=== PATIENT | male | born 1945 | race Two or more races ===

== ENCOUNTER 2018-01-06 07:57 | Outpatient (CLI) | payer OTHER ==
[~2018-01-06 07:57] MED LIST: GLUMETZA1000 MG; LOSARTAN POTASS50 MG; SYNTHROID50 MCG
== END 2018-01-06 08:03 | disposition home or self-care (01) ==
LOC: LAB 07:57
DX: E03.8 Other specified hypothyroidism (principal); C73 Malignant neoplasm of thyroid gland

== ENCOUNTER 2018-02-16 07:55 | Outpatient (CLI) | payer OTHER | END 2018-02-16 08:03 | disposition home or self-care (01) | LOC: LAB 07:55 | DX: Z76.0 Encounter for issue of repeat prescription (principal); E11.8 Type 2 diabetes mellitus with unspecified complications; E03.9 Hypothyroidism, unspecified; C73 Malignant neoplasm of thyroid gland ==

== ENCOUNTER 2018-03-10 12:08 | Outpatient (CLI) | payer OTHER | END 2018-03-10 12:15 | disposition home or self-care (01) | LOC: LAB 12:08 | DX: M25.562 Pain in left knee (principal); E11.65 Type 2 diabetes mellitus with hyperglycemia; R31.0 Gross hematuria; K92.1 Melena ==

== ENCOUNTER 2018-07-07 06:36 | Outpatient (CLI) | payer OTHER | END 2018-07-07 06:59 | disposition home or self-care (01) | LOC: LAB 06:36 | DX: I10 Essential (primary) hypertension (principal); E03.8 Other specified hypothyroidism; E11.65 Type 2 diabetes mellitus with hyperglycemia ==

== ENCOUNTER 2018-07-09 11:00 | Outpatient (CLI) | payer OTHER | END 2018-07-09 11:11 | disposition home or self-care (01) | LOC: LAB 11:00 | DX: I10 Essential (primary) hypertension (principal); E03.8 Other specified hypothyroidism; E11.65 Type 2 diabetes mellitus with hyperglycemia ==

== ENCOUNTER 2018-08-06 11:24 | Outpatient (CLI) | payer OTHER | END 2018-08-06 11:39 | disposition home or self-care (01) | LOC: LAB 11:24 | DX: R19.5 Other fecal abnormalities (principal); K92.1 Melena; K92.9 Disease of digestive system, unspecified ==

== ENCOUNTER 2018-08-08 07:24 | Outpatient (CLI) | payer OTHER | END 2018-08-08 07:56 | disposition home or self-care (01) | LOC: LAB 07:24 | DX: R19.5 Other fecal abnormalities (principal); K92.1 Melena; K92.89 Other specified diseases of the digestive system ==

== ENCOUNTER → 2018-08-15 06:49 | Outpatient (CLI) | payer OTHER | END | disposition home or self-care (01) | LOC: LAB 06:49 | DX: K22.2 Esophageal obstruction (principal); K29.00 Acute gastritis without bleeding; B96.81 Helicobacter pylori [H. pylori] as the cause of diseases classified elsewhere; Z12.11 Encounter for screening for malignant neoplasm of colon ==

== ENCOUNTER 2019-01-02 07:40 | Outpatient (CLI) | payer OTHER | END 2019-01-02 08:08 | disposition home or self-care (01) | LOC: LAB 07:40 | DX: Z76.0 Encounter for issue of repeat prescription (principal); E11.00 Type 2 diabetes mellitus with hyperosmolarity without nonketotic hyperglycemic-hyperosmolar coma (NKHHC); M77.31 Calcaneal spur, right foot; Z13.89 Encounter for screening for other disorder; R80.8 Other proteinuria ==

== ENCOUNTER 2019-03-03 10:53 | Emergency (ER) | payer OTHER ==
[~2019-03-03] VITALS: Ht 170.2 cm; Wt 111.6 kg
[2019-03-03] MEDS ORDERED: JANUMET 50-1,01 EACH (12:15)
== END 2019-03-03 16:37 | disposition home or self-care (01) ==
LOC: ER 10:53
DX: E11.65 Type 2 diabetes mellitus with hyperglycemia (principal)

== ENCOUNTER 2019-03-22 12:34 | Emergency (ER) | payer OTHER ==
[~2019-03-22] VITALS: Ht 170.2 cm; Wt 111.6 kg
[~2019-03-22 12:34] MED LIST changes: +JANUMET 50-1,01 EACH
== END 2019-03-22 19:24 | disposition home or self-care (01) ==
LOC: ER 12:34
DX: D69.49 Other primary thrombocytopenia (principal); E11.65 Type 2 diabetes mellitus with hyperglycemia

== ENCOUNTER → 2019-05-09 07:18 | Outpatient (CLI) | payer OTHER | END | disposition home or self-care (01) | LOC: LAB 07:18 | DX: E03.8 Other specified hypothyroidism (principal); E11.65 Type 2 diabetes mellitus with hyperglycemia; R22.9 Localized swelling, mass and lump, unspecified; Z85.46 Personal history of malignant neoplasm of prostate; D69.6 Thrombocytopenia, unspecified; K59.00 Constipation, unspecified ==

== ENCOUNTER → 2019-05-12 06:25 | Outpatient (CLI) | payer OTHER | END | disposition home or self-care (01) | LOC: LAB 06:25 | DX: E03.8 Other specified hypothyroidism (principal); E11.65 Type 2 diabetes mellitus with hyperglycemia; R22.9 Localized swelling, mass and lump, unspecified; Z85.46 Personal history of malignant neoplasm of prostate; D69.6 Thrombocytopenia, unspecified; K59.00 Constipation, unspecified ==

== ENCOUNTER → 2019-05-18 06:44 | Outpatient (CLI) | payer OTHER | END | disposition home or self-care (01) | LOC: LAB 06:44 | DX: E03.8 Other specified hypothyroidism (principal); R74.8 Abnormal levels of other serum enzymes ==

== ENCOUNTER → 2019-05-24 | Outpatient (CLI) | payer OTHER | END | disposition home or self-care (01) | LOC: SONOGRAMA 13:37 → MAMO-SONO 13:45 | DX: R59.0 Localized enlarged lymph nodes (principal) ==

== ENCOUNTER 2019-05-30 10:16 | Inpatient (IN) | payer OTHER ==
[~2019-05-30] VITALS: Ht 170.2 cm; Wt 107.0 kg
== END 2019-06-09 15:29 | disposition home or self-care (01) | DRG 813 ==
LOC: ER 10:16 → MEDJ 19:24
PROVIDERS: ADMIT Internal Medicine Pulmonary Disease
PROC: BW21Y0Z Computerized Tomography (CT Scan) of Abdomen and Pelvis using Other Contrast, Unenhanced and Enhanced (ICD-10-PCS; 2019-05-30)
PROC: 8E0ZXY6 Isolation (ICD-10-PCS; 2019-05-30)
PROC: 07DR3ZX Extraction of Iliac Bone Marrow, Percutaneous Approach, Diagnostic (ICD-10-PCS; principal; 2019-05-31)
PROC: 07D53ZX Extraction of Right Axillary Lymphatic, Percutaneous Approach, Diagnostic (ICD-10-PCS; 2019-05-31)
PROC: BB24Y0Z Computerized Tomography (CT Scan) of Bilateral Lungs using Other Contrast, Unenhanced and Enhanced (ICD-10-PCS; 2019-05-31)
PROC: 30233R1 Transfusion of Nonautologous Platelets into Peripheral Vein, Percutaneous Approach (ICD-10-PCS; 2019-06-03)
DX: D69.3 Immune thrombocytopenic purpura (principal); C49.3 Malignant neoplasm of connective and soft tissue of thorax; K06.8 Other specified disorders of gingiva and edentulous alveolar ridge; E11.65 Type 2 diabetes mellitus with hyperglycemia; Z79.4 Long term (current) use of insulin; D50.8 Other iron deficiency anemias; I10 Essential (primary) hypertension; R59.0 Localized enlarged lymph nodes

== ENCOUNTER 2019-06-24 06:42 | Emergency (ER) | payer OTHER ==
[~2019-06-24] VITALS: Ht 180.3 cm; Wt 106.6 kg
== END 2019-06-25 05:32 ==
LOC: ER 06:42
DX: D69.3 Immune thrombocytopenic purpura (principal)

== ENCOUNTER 2019-06-30 09:20 | Outpatient (CLI) | payer OTHER | END 2019-06-30 13:10 | disposition home or self-care (01) | LOC: LAB 09:20 | DX: Z01.818 Encounter for other preprocedural examination (principal); D68.8 Other specified coagulation defects ==

== ENCOUNTER 2019-08-09 10:51 | Outpatient (CLI) | payer OTHER | END 2019-08-09 11:26 | disposition home or self-care (01) | LOC: LAB 10:51 | DX: M25.512 Pain in left shoulder (principal); E11.9 Type 2 diabetes mellitus without complications; Z12.11 Encounter for screening for malignant neoplasm of colon ==

== ENCOUNTER → 2019-08-11 | Outpatient (CLI) | payer OTHER | END | disposition home or self-care (01) | LOC: LAB 10:45 | DX: M25.512 Pain in left shoulder (principal); E11.9 Type 2 diabetes mellitus without complications; Z12.11 Encounter for screening for malignant neoplasm of colon ==

== ENCOUNTER 2019-08-14 07:52 | Outpatient (CLI) | payer OTHER | END 2019-08-14 08:03 | disposition home or self-care (01) | LOC: LAB 07:52 | DX: M25.512 Pain in left shoulder (principal); E11.9 Type 2 diabetes mellitus without complications; Z12.11 Encounter for screening for malignant neoplasm of colon ==

== ENCOUNTER 2019-08-24 08:10 | Outpatient (CLI) | payer OTHER | END 2019-08-24 08:39 | disposition home or self-care (01) | LOC: NUCLEAR 08:10 | DX: C81.12 Nodular sclerosis Hodgkin lymphoma, intrathoracic lymph nodes (principal); E11.65 Type 2 diabetes mellitus with hyperglycemia; E03.8 Other specified hypothyroidism; D69.3 Immune thrombocytopenic purpura | CPT/HCPCS: 78815; A9552 ==

== ENCOUNTER → 2019-10-10 08:18 | Outpatient (CLI) | payer OTHER | END | disposition home or self-care (01) | LOC: LAB 08:18 | DX: E03.8 Other specified hypothyroidism (principal); E11.00 Type 2 diabetes mellitus with hyperosmolarity without nonketotic hyperglycemic-hyperosmolar coma (NKHHC); Z76.0 Encounter for issue of repeat prescription ==